=== PATIENT | male | born 1965 | race Caucasian/White ===

== ENCOUNTER 2020-11-21 17:12 | Emergency (ER) | payer OTHER ==
[2020-11-21 19:20] LABS: HEMOGLOBIN 14.6 gm/dl (14.0-17.5); RED BLOOD COUNT 4.39 M/UL (4.20-5.50)
[2020-11-21 20:23] LABS: BUN/CREATININE RATIO 11 (0-10)
== END 2020-11-21 22:48 | disposition home or self-care (01) ==
LOC: ER1 17:12
PROVIDERS: Physician Assistant
DX: M54.2 Cervicalgia (principal); J44.9 Chronic obstructive pulmonary disease, unspecified; F17.210 Nicotine dependence, cigarettes, uncomplicated
CPT/HCPCS: 70491; 80053; 85025; 85652; 86140; 96374; 99284; J2405; Q9963